=== PATIENT | male | born 1965 | race Caucasian/White ===

== ENCOUNTER 2017-11-04 10:42 | Emergency (ER) | payer OTHER ==
[~2017-11-04] VITALS: Ht 182.9 cm; Wt 122.0 kg
[2017-11-04] MEDS ORDERED: LEVOTHYROXINE75 MCG PO (11:23)
[2017-11-04] MEDS ORDERED: AMLODIPINE BESYL5 MG PO (11:23)
[2017-11-04] MEDS ORDERED: METOPROLOL TART25 MG PO (11:24)
[2017-11-04] MEDS ORDERED: LISINOPRIL40 MG PO (11:24)
[2017-11-04 11:26] LABS: HEMATOCRIT 48.1 % (38.0-50.0); HEMOGLOBIN 17.3 G/DL (12.5-16.6); MCV 89.1 FL (86-99); PLATELET COUNT 180 K/uL (156-360); RBC DIS.WIDTH-CV 12.8 % (11.8-14.6); RBC DIS.WIDTH-SD 42.1 % (39-53)
[2017-11-04 11:35] LABS: CHLORIDE 102 mEq/L (99-109); SODIUM 136 mEq/L (136-147)
[2017-11-04 11:37] LABS: GLUCOSE 118 mg/dL (70-99)
[2017-11-04 11:41] LABS: CREATININE 0.9 mg/dL (0.6-1.3)
[2017-11-04 11:42] LABS: UREA NITROGEN (BUN) 13 mg/dL (9-23)
[2017-11-04 11:48] LABS: TROP-I INTERPRETATION NEGATIVE; TROPONIN-I < 0.01 ng/mL (0.0-0.30)
[2017-11-04 11:55] LABS: GFR ESTIMATE (CALCULATED) > 59 mL/min/ (58.99-99999)
[2017-11-04 14:00] VITALS: BP 134/93
== END 2017-11-04 14:03 | disposition home or self-care (01) ==
LOC: EME 10:42
DX: R00.0 Tachycardia, unspecified (principal); E86.0 Dehydration; R00.2 Palpitations
CPT/HCPCS: 71020; 80048; 84484; 85027; 93005; 99281; 99285; J7030